=== PATIENT | female | born 1925 | race Caucasian/White ===

== ENCOUNTER 2016-05-01 11:43 | Emergency (ER) | payer MEDICARE, OTHER ==
[2016-05-01 13:44] LABS: BILIRUBIN NEGATIVE (NEGATIVE); BLOOD NEGATIVE Ery/uL (NEGATIVE); CLARITY CLEAR (CLEAR); COLOR YELLOW (YELLOW); GLUCOSE (U) NORMAL (NORMAL); KETONE (U) NEGATIVE (NEGATIVE); LEUKOCYTES 2+ Leu/uL (NEGATIVE); NITRITE NEGATIVE (NEGATIVE); PROTEIN NEGATIVE (NEGATIVE); UROBILINOGEN 0.2 mg/dL (0.2-1.0); pH 8.5 (5.0-9.0)
[2016-05-01 13:49] LABS: BACTERIA TRACE; URINARY RBC RARE
[2016-05-01 14:44] LABS: BASOPHIL 0.3 % (0-2); EOSINOPHIL 0.6 % (0-7); HCT 41.1 % (37.0-47.0); HGB 13.7 g/dl (12.5-16.0); LYMPHOCYTE 32.5 % (15-48); MCH 30.5 pg (25.0-31.0); MCHC 33.3 g/dL (32.0-36.0); MCV 91.5 fL (78.0-100.0); MONOCYTE 7.3 % (0-12); MPV 10.2 fL (6.0-9.5); NEUTROPHIL 59.3 % (41-80); PLT 173 K/uL (150-400); RBC 4.49 M/uL (4.20-5.40); RDW 13.3 % (11.5-14.0); WBC 6.6 K/uL (4.0-10.5)
[2016-05-01 14:54] LABS: INR 1.04 (0.9-1.2); PROTHROMBIN TIME 13.2 SECONDS (11.7-14.0); PTT 24.2 SECONDS (23.2-31.4)
[2016-05-01 15:01] LABS: ALBUMIN 4.3 g/dL (3.4-4.8); BILIRUBIN - TOTAL 0.4 mg/dL (0.1-1.0); CREATININE 0.9 mg/dL (0.5-1.0); TOTAL PROTEIN 7.3 g/dL (6.4-8.3)
[2016-05-01 15:03] LABS: MYOGLOBIN 34 ng/mL (26-65); TROPONIN T < 0.010 ng/mL
== END 2016-05-01 15:05 | disposition other institution (70) ==
LOC: FER 11:43
PROVIDERS: Emergency Medicine
DX: G45.9 Transient cerebral ischemic attack, unspecified (principal); R11.0 Nausea; I12.9 Hypertensive chronic kidney disease with stage 1 through stage 4 chronic kidney disease, or unspecified chronic kidney disease; N18.9 Chronic kidney disease, unspecified; M06.9 Rheumatoid arthritis, unspecified; R29.700 NIHSS score 0
CPT/HCPCS: 36415; 70450; 71010; 80053; 80061; 81001; 82550; 82553; 83874; 84484; 85025; 85610; 85730; 93005